=== PATIENT | female | born 1990 | race Two or more races ===

== ENCOUNTER → 2024-03-04 | Outpatient (CLI) | payer MEDICAID, SELFPAY ==
--- NOTE | 2024-03-04 11:30 | XR_ITS ---
Examination: Transvaginal ultrasound of the pelvis, complete Technique: Transvaginal sonographic images pelvis performed using perkins scale imaging Exam date and time: March 04, 2024 1103 hrs. Indications: CT examination January 08, 2024 25 mm right adnexal hypodense mass, pelvic pain months Findings: Uterus 9.7 x 7.0 x 8.1 cm No uterine mass or intrauterine gestation Endometrial stripe 13 mm Right ovary 3.9 x 2.5 x 4.2 cm arterial flow 16mm follicular cyst Left ovary 2.5 x 3.3 x 2.9 cm arterial flow Impression: No uterine mass or intrauterine gestation Small right ovarian follicular cyst.
== END | disposition home or self-care (01) ==
PROVIDERS: PCP Nurse Practitioner; Referring Provider Nurse Practitioner; Visit Provider Nurse Practitioner
DX: N83.01 Follicular cyst of right ovary (principal)
CPT/HCPCS: 76830